=== PATIENT | female | born 1990 | race Two or more races ===

== ENCOUNTER 2025-06-02 06:00 | Day surgery (SDC) | payer MEDICAID, SELFPAY ==
[2025-06-01 09:04] VITALS: BMI 37.8
[2025-06-01 09:50] LABS: Basophils # (Auto) 0.1 Thou/mm3 (0.0-0.2); Basophils % (Auto) 1 % (0-2.5); Eosinophils # (Auto) 0.3 Thou/mm3 (0.0-0.5); Eosinophils % (Auto) 4 % (0-10); Hematocrit 34.1 % (36.0-46.0); Hemoglobin 11.0 g/dL (12.0-16.0); Immature Granulocytes Auto 0.02 Thou/mm3 (0.00-0.00); Lymphocytes # (Auto) 2.3 Thou/mm3 (1.0-4.8); Lymphocytes % (Auto) 35 % (10-50); Mean Corpuscular HGB Conc 32.3 g/dl (31.0-37.0); Mean Corpuscular Hemoglobin 27.0 pg (25.0-35.0); Mean Corpuscular Volume 84 fL (80-100); Monocytes # (Auto) 0.4 Thou/mm3 (0.0-0.8); Monocytes % (Auto) 7 % (0-12); Neutrophils # (Auto) 3.4 Thou/mm3 (1.8-7.7); Neutrophils % (Auto) 53 % (37-80); Nucleated Red Blood Cell # 0.00 Thou/mm3 (0.00-0.00); Nucleated Red Blood Cell % 0 /100 WBC (0); Platelet Count 325 Thou/mm3 (140-440); RDW Standard Deviation 48.7 fL (36.4-46.3); Red Blood Count 4.08 Miln/mm3 (4.00-5.20); White Blood Count 6.5 Thou/mm3 (3.6-11.0)
--- NOTE | 2025-06-01 10:02 | ESHP_ITS ---
RE: TIARA LEVY : 1990 DATE OF ADMISSION: 06/02/2025 HISTORY OF PRESENT ILLNESS: This is a 35-year-old 3, para 3 with abnormal uterine bleeding who presents for endometrial ablation. ALLERGIES: NO KNOWN DRUG ALLERGIES. MEDICATIONS: 1. Lexapro 20 mg one p.o. daily. 2. Trazodone 50 mg one p.o. at bedtime. 3. Zepbound weekly injections. PAST MEDICAL HISTORY: Endometriosis and hypertriglyceridemia. PAST SURGICAL HISTORY: delivery x3 and bilateral tubal ligation. OBSTETRIC HISTORY: Three previous full-term deliveries. FAMILY HISTORY: Denies. PHYSICAL EXAMINATION: VITAL SIGNS: Blood pressure 110/70, heart rate 88, respirations 18, temperature 98.6. HEENT: Oropharynx and sclerae are clear. LUNGS: Clear to auscultation bilaterally. HEART: Regular rate and rhythm. ABDOMEN: Old Pfannenstiel scar noted. EXTREMITIES: Nontender. SKIN: No gross rashes or lesions. NEUROLOGIC: No focal deficit. ASSESSMENT AND PLAN: Abnormal uterine bleeding. PLAN: Hysteroscopy, fractional dilatation and curettage, and Novasure endometrial ablation. Informed consent was obtained. The patient made aware of the risks, complications, alternatives, and benefits of the proposed procedure and she agrees. She is aware of the risk of injury to bowel, bladder, or adjacent organs, pulmonary embolism, deep vein thrombosis, pelvic infection, reoperation to repair injury to internal organs, anesthesia complications, the possibility that a laparotomy needs to be performed to repair organs or control bleeding, and the possibility that the procedure is not able to be completed due to severe adhesions or technical difficulties. DT: 07:10:48 TT: 07:38:00 Ref: [id number] - TID: [id number] MTDJayson
[2025-06-01 10:04] LABS: INR 1.0 (0.9-1.3); Partial Thromboplastin Time 27.4 Seconds (22.0-36.0); Prothrombin Time 10.4 Seconds (9.0-12.2)
[2025-06-01 10:36] LABS: Alanine Aminotransferase 7 U/L (10-49); Albumin, Serum 4.2 gm/dL (3.5-5.0); Albumin/Globulin Ratio 1.6 (1.2-2.2); Alkaline Phosphatase 63 U/L (46-116); Anion Gap 9 (7-16); Aspartate Amino Transferase 16 U/L (0-34); BUN/Creatinine Ratio 14 Ratio (12-20); Beta HCG,Quantitative < 1 mIU/mL (<5.0); Bilirubin,Total 0.5 mg/dL (0.3-1.2); Blood Urea Nitrogen 11 mg/dL (9-23); Calcium 9.3 mg/dL (8.3-10.6); Calcium (Corrected) 9.3 mg/dL (8.5-10.1); Carbon Dioxide 27.5 mMol/L (20.0-31.0); Chloride 106 mMol/L (98-107); Creatinine (Component) 0.8 mg/dL (0.6-1.3); Estimated Creatinine Clearance 114.7 mL/min (>60); Globulin 2.7 gm/dL (2.3-3.5); Glucose 83 mg/dL (74-106); Osmolality,Calculated 281 (275-295); Potassium 4.2 mMol/L (3.4-5.1); Sodium 142 mMol/L (136-145); Total Protein 6.9 gm/dL (5.7-8.2); eGFR > 60 See Note
[2025-06-02] VITALS (7 sets, daily range): BP systolic 97–128; BP diastolic 54–77; PULSE 67–103; RESP 12–20; TEMP 36.2–36.7; O2SAT 96–100; BMI 37.5
--- NOTE | 2025-06-02 07:20 | CHAP ---
Had prayer with patient in hallway as she was being taken to surgery.
--- NOTE | 2025-06-02 08:03 | SUR.PHASEI ---
0803 Patient arrived to recovery resting comfortably in [facility], on oxygen 4L via nasal cannula, breathing unlabored, vital signs stable, denies pain and nausea, dressing intact to vaginal area; peripad, no bleeding noted, report received from Dr. Torres and Joann BLANCO
--- NOTE | 2025-06-02 08:09 | ESOP_ITS ---
Operative Note - [facility] Procedure Date of procedure: 06/02/25 Procedure Performed: Hysteroscopy MyoSure removal of endometrial polyp Fractional dilatation and curettage NovaSure endometrial ablation Indication: Abnormal uterine bleeding Pre-Op diagnosis: Abnormal uterine bleeding Post-Op diagnosis: Abnormal uterine bleeding Endometrial polyp Anesthesia type: General Procedure description: After proper informed consent was obtained and the patient made aware of the risk complications alternatives and benefits of the proposed procedure she was taken to the operating room where she underwent induction of general anesthesia.? She was placed in the dorsal lithotomy position and prepped and draped the usual sterile fashion.? A timeout was performed.? A bivalve speculum was inserted.? A single-tooth tenaculum was used to grasp the anterior lip of the cervix.? The uterine cavity was sounded to 10.0 cm.? The cervical length measured 4.0 cm.? The cervix was dilated to accommodate the 5.5 mm Omni hysteroscope.? Using the Aquilex system and normal saline as the distending media the hysteroscopy was performed and an endomtrial polyp 5 x 6 mm was visualized in the uterine cavity.?? The Using the MyoSure Reach device the polypectomy was performed and specimens sent to pathology. The fluid deficit at the end of the MyoSure procedure was 0.? The endocervix was curetted with the Kevorkian curette and specimen sent to pathology.? The uterine cavity was curetted with a 5 mm curette and specimen sent to pathology.? The NovaSure catheter was plugged into the controller.? It went through its purge cycle.? The array was deployed and was found to be complete and intact with the width meter working properly. The Novasure catheter was appropriately seated in the uterine cavity.? The cavity length was 6.0 cm, ?the cavity width was 4.8 cm the power setting was 158 W.? The carbon dioxide cavity integrity assessment test was performed.? The uterine cavity was intact.? The controller was enabled and the ablation was performed for a total of 56 seconds before the controller shut off.? The array was retracted into the sheath and the catheter was removed from the uterine cavity.? The array was redeployed and found to be complete and intact.? There was bleeding at the anterior lip of the cervix at the site of the tenaculum and using the Bovie cautery hemostasis was achieved.? There was no bleeding at the end of the procedure.? All instruments were removed from the vagina.? She was reversed from general anesthesia in supine position and transferred to the cover room in stable condition.? She tolerated the procedure well.? Counts were correct.? I discussed with the patient's family the nature of her condition, the intraoperative findings, the expectation for recovery, all questions answered. Specimen: other (1. Endometrial polyp 2. Endocervical curettings 3. Endometrial curettings) Estimated blood loss (ml): 5 Findings: Uterus sounded to 10 cm anteverted Cervical length 4.0 cm Uterine cavity length 6.0 cm Uterine cavity width 4.8 cm Power setting 158 W Duration of ablation 56 seconds Endometrial polyp on the posterior lower uterine segment measuring 5 x 6 mm Normal-appearing uterine cavity shape No submucous myomas Fluids absorbed hysteroscopically 0 cc Complications: none Surgical staff Dr. Torres anesthesiologist Operation Date: 06/02/25 07:30 <No data on this case meets the specified criteria> Diagnosis Discharge Diagnosis (1) S/P endometrial ablation: Status: Acute (2) Abnormal uterine bleeding due to endometrial polyp: Status: Acute Problem List Completed Was Problem List Reviewed/Reconciled?: Yes
--- NOTE | 2025-06-02 08:50 | SUR.PHASEII ---
0850 Patient meets discharge criteria from recovery, awake and alert, breathing unlabored, vital signs stable, denies pain, dressing intact; no bleeding noted, eating ice chips; denies nausea, assisted with dressing into her clothing by her boyfriend, discharge instructions given to patient and patients boyfriend, boyfriend signed discharge instructions. Patient given all her belongings prior to discharge, transported via wheelchair and left in a private vehicle.
== END 2025-06-02 08:50 | disposition home or self-care (01) ==
PROVIDERS: Referring Provider Specialist; Visit Provider Specialist
PROC: 0U5B8ZZ Destruction of Endometrium, Via Natural or Artificial Opening Endoscopic (ICD-10-PCS; CPT 58563; principal; 2025-06-02 07:30)
DX: N84.0 Polyp of corpus uteri (principal)
CPT/HCPCS: 58563; 36415; 80053; 84702; 85025; 85610; 85730; 86850; 86870; 86900; 86901; A4217; A4649; J0690; J1100; J2371; J2704; J2765; J3010; J3490